=== PATIENT | male | born 1950 | race Caucasian/White ===

== ENCOUNTER → 2017-08-28 12:30 | Outpatient (CLI) | payer MEDICARE, OTHER, SELFPAY ==
[2017-08-28 11:52] VITALS: TEMP 36.9
[2017-08-30 16:17] LABS: Urea Breath Test >18YRS Not Detected
== END ==
DX: K27.9 Peptic ulcer, site unspecified, unspecified as acute or chronic, without hemorrhage or perforation (principal); A04.8 Other specified bacterial intestinal infections
CPT/HCPCS: 83013